=== PATIENT | female | born 1965 | race Caucasian/White ===

== ENCOUNTER 2016-12-08 05:50 | Emergency (ER) | payer MEDICAID, OTHER ==
[2016-12-08 06:03] VITALS: RESP 16; TEMP 98.1
--- NOTE | 2016-12-08 06:16 | EDPHY ---
H & P Time Seen by Provider: 12/08/16 06:00 HPI/ROS: CHIEF COMPLAINT: cannot sleep, overwhelmed with grief HISTORY OF PRESENT ILLNESS: this is a 51-year-old female who his dealing with the loss of her grandson as he is being prevented from seeing her. Evidently this happened about a month ago. She is having worsening difficulties with this , and has gone so far as to make attempts to consider cutting grandparents writes groups as well as intervening in the child support issues on the behalf of her son. It was a difficult year. Her grandparents this past spring and she had difficulty coping with this. She describes going to see [facility] for her symptoms and was placed on Prozac. She completed approximately 3 months of treatment. By then she was beginning to feel better as she had to deal with her own mother's brief regarding the loss of mother's parents, did not really feel any different on the medications - so she stopped these without a taper. She is only on sertraline 20 mg. This was the 1st and only time she was ever on any psychiatric medications. She has had no prior history of psychiatric difficulties when growing up as she was active close knit 16. Furthermore there is no family history of psychiatric problems. She has no prior history of suicide attempts. No substance abuse. As to her current predicament. She finds herself being overcome with tension and being upset and heart pounding at times due to her situation. In particular she has tried to hurt herself with softball as she is an avid athlete 3 times weekly and will do so for approximately 6-7 hours in a row from 6:00 p.m. to 1:00 a.m. however is particularly difficult for her on the days which she is not how they are doing the softball. 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 She denies any SI or HI. She has forward looking. She has intact support system. Intact leave system. She has no firearms in the house. The extended family, 35 people, or showing up to a [place] [facility] this next week and started tonight. She anticipates being the major arc, cooking in the kitchen as a way to get through this, as she sees this patient is difficulty watching everyone else in the family having fine with their kids. Thus, there is no anhedonia or helplessness sensation and she has forward thinking with hope. REVIEW OF SYSTEMS: 10 point ROS otherwise negative Source: Patient Exam Limitations: No limitations - Personal History LMP (Females 10-55): Post Menopausal - Medical/Surgical History Hx Asthma: No Hx Chronic Respiratory Disease: No Hx Diabetes: No Hx Cardiac Disease: No Hx Renal Disease: No Hx Cirrhosis: No Hx Alcoholism: No Hx HIV/AIDS: No Hx Splenectomy or Spleen Trauma: No - Family History Significant Family History: No pertinent family hx (No family history of bipolar disease, anxiety depression) - Social History Smoking Status: Never smoked Alcohol Use: None Drug Use: None - Physical Exam Exam: General Appearance: Alert, no distress. Teary-eyed at times. Good eye contact. Afebrile. Normal phonation. No respiratory distress. Eyes: Pupils equal and round no pallor or injection. No icterus ENT, Mouth: Mucous membranes moist. Pharynx without erythema or exudate. TM Clear. Neck: No adenopathy. Supple. No JVD. Respiratory: There are no retractions, lungs are clear to auscultation. Cardiovascular: Regular rate and rhythm. Abdomen: Soft and nontender, no masses, bowel sounds normal. Femoral pulses equal. Neurological: Ox3. No motor weakness. Sensation intact. Gait nl. Skin: Warm and dry, no rashes. Musculoskeletal: No joint swelling. Extremities: No edema. Psychiatric: Normal affect. Patient is oriented X 3, there is no agitation Allergies/Adverse Reactions: No Known Allergies Allergy (Unverified 12/08/16 06:00) Home Medications: Medication Instructions Recorded Cetirizine [ZyRTEC] 10 mg PO DAILY 11/13/11 LORazepam [Ativan] 0.5 - 1 mg PO BID PRN #15 tablet 12/08/16 traZODone [traZODONE 50MG (*)] 50 mg PO HS #12 tab 12/08/16 Medical Decision Making ED Course/Re-evaluation: This is a well-spoken woman who is going through typical time. While she does have insight and a support system she has inordinate expectations of medications to help her short-term he. I redirected her the need to continue on with [facility] as she has already arranged in order to consider a different medication for depression as most likely insomnia is a sign of an underlying depressive state, in this instance the stressor and essentially loss of her katarzyna son precipitating things. While she has some adaptive behaviors such as reaching out to grandparent right groups, solutions like that tend to take quite a bit of time and thus the problematic briefer spots would be on going. Thereby she would better be served by getting and some longer-term management treatments. In the term a course of Trazodone so as to allow her to have restorative sleep would be particularly helpful. Other days between her softball low-dose Ativan would be ideal, though short term. We have discussed at length addiction risks of benzodiazepines and have cautioned her about sedation effects as well Differential Diagnosis: Differential Includes but is not limited to: Adjustment disorder, vegetative depression, agitated depression. Departure - Departure Disposition: Home, Routine, Self-Care Clinical Impression: Adjustment insomnia Condition: Good Instructions: Insomnia (ED) Additional Instructions: The TRAZODONE is very sedating - no driving for 12 hours thereafter. Initially , start with half a tablet. After for 5 days you can try increasing if need be however, due to your petite size that may be not be necessary. Take the ATIVAN occasionally for that overwhelming feeling, but not at the same time as the ATIVAN. No drinking driving or working showing me with this medication Be sure to take what is left of these medications with you to the appointment at [facility] in 6 days time. Prescriptions: LORazepam [Ativan] 0.5 - 1 mg PO BID PRN #15 tablet PRN Reason: tremors, shakes and anxiety traZODone [traZODONE 50MG (*)] 50 mg PO HS #12 tab
[2016-12-08 06:45] VITALS: BP 148/75; PULSE 74; O2SAT 95
== END 2016-12-08 06:55 | disposition home or self-care (01) ==
LOC: CED 05:50
DX: F51.02 Adjustment insomnia (principal)